=== PATIENT | male | born 1990 | race Two or more races ===

== ENCOUNTER 2019-03-31 23:09 | Emergency (ER) | payer OTHER ==
[~2019-03-31] VITALS: Ht 172.7 cm; Wt 61.2 kg
--- NOTE | 2019-03-31 23:25 | NUR ---
Dr. Austin at bedside for MSE
[2019-03-31] MEDS ORDERED: IBUPROFEN 600 MG TABLET ONE (23:36)
--- NOTE | 2019-03-31 23:38 | NUR ---
Xray at bedside.
[2019-03-31] MEDS ORDERED: IBUPROFEN 600 MG TABLET PO ONE (23:45)
--- NOTE | 2019-04-01 00:57 | NUR ---
Patient discharged to home in stable conditon. Written and verbal after care instructions given. Patient verbalizes understanding of instructions. Patient ambulating with steady gait
[2019-04-01 00:58] VITALS: BP 110/79
== END 2019-04-01 00:57 | disposition home or self-care (01) ==
LOC: ER 23:13
DX: S13.4XXA Sprain of ligaments of cervical spine, initial encounter (principal); R51 Headache; F17.200 Nicotine dependence, unspecified, uncomplicated; V49.9XXA Car occupant (driver) (passenger) injured in unspecified traffic accident, initial encounter; Y93.89 Activity, other specified; Y92.89 Other specified places as the place of occurrence of the external cause; Y99.8 Other external cause status
CPT/HCPCS: A4663

== ENCOUNTER 2019-05-13 21:17 | Emergency (ER) | payer OTHER ==
[~2019-05-13] VITALS: Ht 172.7 cm; Wt 61.2 kg
--- NOTE | 2019-05-13 21:30 | NUR ---
DR HURST AT BEDSIDE FOR MSE.
[2019-05-13] MEDS ORDERED: CEFTRIAXONE 500 MG VIAL ONE (21:37)
[2019-05-13] MEDS ORDERED: AZITHROMYCIN 250 MG TABLET ONE (21:38)
[2019-05-13] MEDS ORDERED: CEFTRIAXONE 500 MG VIAL IM ONE (21:45)
[2019-05-13] MEDS ORDERED: AZITHROMYCIN 250 MG TABLET PO ONE (21:45)
[2019-05-13 21:53] LABS: *BILIRUBIN,URIN NEGATIVE (NEGATIVE); *BLOOD, URINE NEGATIVE (NEGATIVE); *CLARITY,URINE CLEAR (CLEAR); *COLOR,URINE YELLOW (YELLOW); *KETONES,URINE NEGATIVE (NEGATIVE); *UROBILINOGEN,URINE 0.2 E.U./dl (NORMAL); LEUKOCYTE ESTERASE ,URINE NEGATIVE (NEGATIVE); NITRITE, URINE NEGATIVE (NEGATIVE); PH,URINE 6.5 (5.0-8.0); UGLUCOSE NEGATIVE (NEGATIVE)
[2019-05-13 21:57] VITALS: BP 120/82
--- NOTE | 2019-05-13 21:57 | NUR ---
Patient discharged to home in stable conditon. Written and verbal after care instructions given. Patient verbalizes understanding of instructions. Pt able to ambulate out of ER with stable gait. All belongings with pt.
== END 2019-05-13 21:59 | disposition home or self-care (01) ==
LOC: ER 21:23
DX: N34.2 Other urethritis (principal); Z87.438 Personal history of other diseases of male genital organs; F17.290 Nicotine dependence, other tobacco product, uncomplicated
CPT/HCPCS: 99284; 81001; 87086; 96372; 99406; J0696; J3490; A4663; Q0144

== ENCOUNTER 2020-02-29 07:47 | Emergency (ER) | payer OTHER ==
[~2020-02-29] VITALS: Ht 167.6 cm; Wt 62.1 kg
[2020-02-29 08:30] LABS: *BILIRUBIN,URIN NEGATIVE (NEGATIVE); *CLARITY,URINE SLIGHTLY CLOUDY (CLEAR); *COLOR,URINE YELLOW (YELLOW); *KETONES,URINE NEGATIVE (NEGATIVE); *UROBILINOGEN,URINE 0.2 E.U./dl (NORMAL); LEUKOCYTE ESTERASE ,URINE NEGATIVE (NEGATIVE); NITRITE, URINE NEGATIVE (NEGATIVE); UGLUCOSE NEGATIVE (NEGATIVE)
[2020-02-29 08:32] LABS: *BLOOD, URINE TRACE (NEGATIVE)
[2020-02-29] MEDS ORDERED: CEFTRIAXONE 500 MG VIAL ONE (08:43)
[2020-02-29] MEDS: CEFTRIAXONE 500 MG VIAL IM ONE (08:49)
--- NOTE | 2020-02-29 08:51 | NUR ---
Gave pt RX and d/c instructions, pt verbalized understanding.
[2020-02-29 09:05] LABS: BACTERIA,URINE NONE SEEN /HPF (NONE SEEN); SQUAMOUS EPITHELIAL CELL,UR FEW /HPF (NONE SEEN); WBC,URINE 0-3 /HPF (0-3)
[2020-03-02 08:06] LABS: *GC NAA Negative (Negative); *TRIC.VAG. NAA Negative (Negative)
== END 2020-02-29 08:53 | disposition home or self-care (01) ==
LOC: ER 07:47
DX: N34.2 Other urethritis (principal); G40.909 Epilepsy, unspecified, not intractable, without status epilepticus; B00.9 Herpesviral infection, unspecified
CPT/HCPCS: 81001; 87491; 96372; 99283; J0696; A4663

== ENCOUNTER 2024-06-11 19:45 | Emergency (ER) | payer OTHER ==
[~2024-06-11] VITALS: Ht 172.7 cm; Wt 59.9 kg
[2024-06-11 20:31] LABS: *BILIRUBIN,URIN NEGATIVE (NEGATIVE); *BLOOD, URINE NEGATIVE (NEGATIVE); *CLARITY,URINE CLEAR (CLEAR); *COLOR,URINE YELLOW (YELLOW); *KETONES,URINE NEGATIVE (NEGATIVE); *PROTEIN,URINE NEGATIVE (NEGATIVE); LEUKOCYTE ESTERASE ,URINE NEGATIVE (NEGATIVE); NITRITE, URINE NEGATIVE (NEGATIVE); UGLUCOSE NEGATIVE (NEGATIVE)
[2024-06-11 20:45] LABS: RBC,URINE NONE SEEN /HPF (0-3)
[2024-06-11 20:46] LABS: BACTERIA,URINE NONE SEEN /HPF (NONE SEEN); SQUAMOUS EPITHELIAL CELL,UR FEW /HPF (NONE SEEN); WBC,URINE 0-3 /HPF (0-3)
[2024-06-11] MEDS ORDERED: PHEN-704 PO (21:02)
[2024-06-11] MEDS ORDERED: DOXY-326 PO (21:02)
[2024-06-11] MEDS ORDERED: DOXYCYCLINE HYCLATE 100 MG TABLET ONE (21:06)
[2024-06-11] MEDS ORDERED: CEFTRIAXONE 500 MG VIAL ONE (21:06)
[2024-06-11] MEDS ORDERED: PHENAZOPYRIDINE HCL 100 MG TABLET ONE (21:06)
[2024-06-11] MEDS: PHENAZOPYRIDINE HCL 100 MG TABLET PO ONE (21:10)
[2024-06-11] MEDS: DOXYCYCLINE HYCLATE 100 MG TABLET PO ONE (21:10)
[2024-06-11] MEDS: CEFTRIAXONE 500 MG VIAL IM ONE (21:10)
[2024-06-11 21:47] VITALS: BP 130/73; O2SAT 97
[2024-06-13 12:12] LABS: *CHLAMYDIA NAA Negative (Negative); *GC NAA Negative (Negative); *TRIC.VAG. NAA Negative (Negative)
== END 2024-06-11 21:48 | disposition home or self-care (01) ==
LOC: ER 19:45
DX: R30.0 Dysuria (principal); N34.2 Other urethritis; F17.210 Nicotine dependence, cigarettes, uncomplicated; Z88.7 Allergy status to serum and vaccine
CPT/HCPCS: 99283; 81001; 96372; 87491; J0696; A4606; A4663